=== PATIENT | female | born 1970 | race Caucasian/White ===

== ENCOUNTER → 2019-06-18 | Outpatient (CLI) | payer BC ==
--- NOTE | 2019-06-18 11:19 | RAD ---
EXAM: Left shoulder, 4 views; cervical spine, 3 views; thoracic spine, 3 views; lumbar spine, 3 views. HISTORY: Pain. Acute injury. COMPARISON: None. FINDINGS: Left shoulder: 4 views of the left shoulder obtained. There is no fracture, dislocation or subluxation. Cervical spine: 3 views of the cervical spine are obtained. There is mild reversal cervical lordosis. There is no listhesis. There is degenerative endplate remodeling with anterior spurring and slight disc space narrowing at C5-C6 and C6-C7. There is no fracture. Thoracic spine: 3 views of the thoracic spine are obtained. There is mild S-shaped thoracic scoliosis. There is no listhesis. The vertebral bodies are normal in height and the disc spaces are preserved. Lumbar spine: 3 views of the lumbar spine are obtained. There is mild lumbar scoliosis. There is no listhesis. The vertebral bodies are normal in height and the disc spaces are preserved. There is an incidental transitional lumbosacral segment, a normal variant. IMPRESSION: 1. No acute osseous finding. 2. Mild thoracolumbar scoliosis. 3. Degenerative change involving the cervical spine at C5-C6 and C6-C7. Electronically signed by: Sue Zuleta MD (06/18/2019 11:15 AM) [id number]
== END ==
LOC: LAB 10:04
PROVIDERS: ATTEND Surgery
DX: M47.812 Spondylosis without myelopathy or radiculopathy, cervical region (principal); M41.85 Other forms of scoliosis, thoracolumbar region; M48.02 Spinal stenosis, cervical region
CPT/HCPCS: 72040; 72072; 72100; 73030

== ENCOUNTER → 2019-06-21 | Outpatient (CLI) | payer BC ==
[2019-06-21 11:59] LABS: BASO % 1 % (0-3); EOS # 0.1 x10^3/uL (0.0-0.7); EOS % 1 % (0-3); HEMATOCRIT 40.2 % (36.0-47.0); HEMOGLOBIN 13.5 g/dL (12.0-15.5); LYMPH # 1.3 x10^3/uL (1.0-4.8); LYMPH % 18 % (24-48); MEAN CORPUSCULAR HEMOGLOBIN 29 pg (25-35); MEAN CORPUSCULAR HGB CONC 34 g/dL (31-37); MEAN CORPUSCULAR VOLUME 87 fL (79-100); MONO # 0.7 x10^3/uL (0.0-1.1); MONO % 9 % (0-9); NEUT # 5.2 x10^3/uL (1.8-7.7); NEUT % 71 % (31-73); PLATELET COUNT 192 x10^3/uL (140-400); RED BLOOD COUNT 4.64 x10^6/uL (3.50-5.40); RED CELL DISTRIBUTION WIDTH 15.5 % (11.5-14.5); WHITE BLOOD COUNT 7.3 x10^3/uL (4.0-11.0)
[2019-06-21 12:07] LABS: PROTHROMBIN TIME PATIENT 12.5 SEC (11.7-14.0)
[2019-06-21 12:23] LABS: ALBUMIN 3.6 g/dL (3.4-5.0); CALCIUM 8.9 mg/dL (8.5-10.1); CREATININE 0.7 mg/dL (0.6-1.0); DIRECT BILIRUBIN 0.2 mg/dL (0.0-0.2); GFR 88.6; TOTAL BILIRUBIN 1.2 mg/dL (0.2-1.0); TOTAL PROTEIN 7.3 g/dL (6.4-8.2)
[2019-06-21 12:29] LABS: CHOLESTEROL/HDL RATIO 4.4
[2019-06-21 16:10] LABS: THYROXINE 6.5 ug/dL (4.5-12.0)
[2019-06-22 00:07] LABS: HEMOGLOBIN A1C 5.6 % (4.8-5.6)
== END | disposition home or self-care (01) ==
LOC: LAB 11:24
PROVIDERS: ATTEND Surgery
DX: Z00.00 Encounter for general adult medical examination without abnormal findings (principal)
CPT/HCPCS: 36415; 80053; 80061; 80076; 83036; 84436; 84443; 84480; 85025; 85610